=== PATIENT | female | born 1975 | race Caucasian/White ===

== ENCOUNTER 2017-01-01 12:05 | Observation (INO) | payer BC ==
[~2017-01-01] VITALS: Ht 170.2 cm; Wt 124.7 kg
--- NOTE | ~2017-01-01 | CATH ---
Cardiac Diagnostic Report Demographics Patient Name MELISSA TANNER Gender Female K Date of 1975 Age 41 year(s) Patient Number [id number] Date of Study 01/02/2017 Visit Number [id number] Room Number 423 Corporate ID Ht 170.18 cm Wt 124.28 kg Accession Number [id number] BSA 2.31 m kg/m Referring Riley Hadley Primary Physician Physician MD Ten Main MD Performing Germaine Raphael MD Secondary Physician Physician Diagnostic Germaine Raphael MD Assisting Physician Physician Interventional Physician Cyber Transport Systems Specialist Physician Findings and Conclusions Diagnostic Findings and Conclusion 1. Non obstructive single vessel CAD. Diagnostic Recommendations 1. Medical management. Procedure Description The patient was brought to the diagnostic cardiac catheterization laboratory in the fasting, non-sedated state. Informed consent was obtained in the written and verbal form after the risks and benefits were explained. The patient had no further questions and agreed to proceed. The planned puncture-incision site(s) were clipped and prepped with ChloraPrep and draped in the usual sterile manner. Conscious sedation, supplemental oxygen, and pain control medications were delivered by a registered nurse under physician guidance. Surface ECG rhythm, blood pressure measurement, and pulse oximetry were monitored throughout the procedure. Arterial access. The right radial access site was infiltrated with lidocaine. The vessel was entered with the Seldinger technique. A 6F sheath was advanced into the vessel and used for catheter placement. Selective left coronary angiography. A catheter was advanced into the left coronary vessel ostium under Fluoroscopic guidance. Contrast was injected by hand. Images were obtained in multiple projections. Selective right coronary angiography. A catheter was advanced into the right coronary vessel ostium under fluoroscopic guidance. Contrast was injected by hand. Images were obtained in multiple projections. Left heart catheterization. A catheter was advanced across the aortic valve to the left ventricle under fluoroscopic guidance. Resting hemodynamics were obtained. Hemostasis: The sheath was removed and a TR Band was placed. Hemostasis was achieved. The patient was transferred to a regular nursing floor via cart accompanied by a nurse. The patient left the laboratory in stable condition. Procedure Procedure Type Diagnostic procedure:Angiography:, Coronary Angios w/[facility] Indications: Chest pain with positive enzymes and numbness left arm. The procedure was explained in detail to the patient. Risks, complications and alternative treatments were reviewed. Written consent was obtained. Medications Reviewed with Patient prior to Procedure. Complications: No Complication. Angiographic Findings Dominance: Right Cardiac Arteries and Lesion Findings LMCA: Normal (0% Stenosis). LAD: Normal (0% Stenosis). LCx: Normal (0% Stenosis). RCA: Abnormal. Lesion on Prox RCA: 40% stenosis . Coronary Tree Procedure Data Procedure Date Date: 01/02/2017Start: 11:21 AM Entry Locations - Percutaneous access was performed through the Right Radial artery (Primary location). A 6 Fr sheath was inserted. Hemostasis was successfully obtained using a TR band. Procedure Medications Order and Administration + + +-------+-------+ !Time !Medication !Dosage !Route ! + + +-------+-------+ !01/02/2017 !Versed !2 mg !I.V. ! !11:19 AM ! ! ! ! + + +-------+-------+ 01/02/2017 !Fentanyl !25 mcg !I.V. ! !11:20 AM ! ! ! ! + + +-------+-------+ 01/02/2017 !Sodium Chloride !10 ml !I.V. ! !11:20 AM ! ! ! ! + + +-------+-------+ !01/02/2017 !Versed !2 mg !I.V. ! !11:11 AM ! ! ! ! + + +-------+-------+ !01/02/2017 !Fentanyl !50 mcg !I.V. ! !11:11 AM ! ! ! ! + + +-------+-------+ !01/02/2017 !SF Radial Cocktail: 200mcg Nitro, 2.5 mg ! !I.A. ! !11:26 AM !Verapamil, 5000u Heparin ! ! ! + + +-------+-------+ Devices Used - ACATH 6FR FL3.5 CATHETER 100CMwas used for:Left coronary angiography. - ACATH 6F FR4 CATHETER 100CMwas used for:Right coronary angiography. Contrast Material - Isovue 50997 ml Fluoroscopy Time: Diagnostic: 3:18 minutes. Total: 3:18 minutes. Fluoroscopy Dose: Diagnostic: 763 mGy. Total: 763 mGy. Estimated Blood Loss: 9 ml. Medical History Allergies - Other:(macrolide, tetracycline, doxycycline, erythromycin, ethyl alcohol, darvocet). Risk Factors The patient risk factors include:last creatinine: 0.8 mg/dl, creatinine clearance: 185.24 ml/min and Current/Recent(w/in 1 year) tobacco use. Admission Data Admission Date: 01/01/2017 Admission Time: 01:25 PM Insurance Payors: [employer] health insurance. Hemodynamics Condition: Rest O2 Consumption: Estimated: 233.65Heart Rate: 67 bpm Pressures (mmHg) +-----+ + !Site !Pressure ! +-----+ + !AO !96/65 (80) ! +-----+ + !LV !125/2 ,4 ! +-----+ + !AO !103/71 (86) ! +-----+ + !LV !102/ ,22 ! +-----+ + Valve Gradients and Areas + +---------+---------+---------+ +---------+ + !Valve !Peak !Mean !Area !Index !Flow !Source ! + +---------+---------+---------+ +---------+ + !Aortic !0 !0 ! ! ! ! ! + +---------+---------+---------+ +---------+ + !Aortic !0 !0 ! ! ! ! ! + +---------+---------+---------+ +---------+ + Shunts Oxygen Values O2 Capacity 206.72 O2 Consumption 233.65 Signatures
--- NOTE | ~2017-01-01 | ECH ---
Transthoracic Echocardiography Report (TTE) Demographics Patient Name CIRO TORRES Date of Study 01/01/2017 K Patient Number [id number] Visit Number [id number] Date of 1975 Room Number 423 Accession Number [id number] Gender Female Age 41 year(s) Referring Riley Hadley Architect In Training Rebecca Christiansen RDCS Physician MD Ten Main MD Physician Interpreting [facility] Abdirahman R Belt And Link Assembly Supervisor Physician Supervising Ordering Physician Ten Main MD, MD/MLP Nurse Stress Product Picker Conclusions Summary Technically difficult exam due to body habitus The estimated left ventricular ejection fraction is 55-60%. Mild concentric left ventricular hypertrophy. No significant valvular abnormalities. Procedure Type of Study TTE procedure:Echo Complete SF. Procedure Date Date: 01/01/2017 Start: 03:36 PM Technical Quality: Fair due to body habitus. Indications:Chest pain. Appropriate Use Criteria: 9 Height: 67 inches Weight: 274 pounds BSA: 2.31 m Rhythm: NSR HR: 72 bpm BP: 122/71 mmHg M-Mode/2D Measurements LV Diastolic Dimension: 3.88 cm LV Systolic Dimension: 2.59 cm LV Septum Diastolic: 1.21 cm LV PW Diastolic: 1.29 cm AO Root Dimension: 2.64 cm Cardiac Output: 2.94 l/min LA Dimension: 3.49 cm Cardiac Index: 1.27 l/min*m RV Diastolic Dimension: 2.8 cm LA volume index: 15 ml/m LVOT: 1.93 cm LVOT VTI: 13.97 cm RV Base: 3.2 cm LV Stroke volume: 40.85 ml RV Mid: 2.3 cm LV Stroke volume index: 17.68 ml/m RV Length: 6.9 cm Doppler Measurements AV Peak Velocity: 0.98 m/s MV Peak E-Wave: 0.39 m/s AV Peak Gradient: 3.84 mmHg MV Peak A-Wave: 0.53 m/s AV Mean Gradient: 2.12 mmHg MV E/A Ratio: 0.73 LVOT Peak Velocity: 0.82 m/s MV P1/2t: 90.1 msec AV Area (Continuity):2.64 cm MV Deceleration Time: 261.1 msec MV Area (PHT): 2.44 cm PV Peak Velocity: 0.78 m/s PV Peak Gradient: 2.45 mmHg RA Area: 7.4 cm Findings Left Ventricle The left ventricle is normal in size . Mild concentric left ventricular hypertrophy. Diastolic assessment reveals Grade I diastolic dysfunction. Right Ventricle Normal right ventricle structure and function. Left Atrium Normal left atrial size. Right Atrium Normal right atrial size. Mitral Valve Normal mitral valve structure and function. Trivial mitral regurgitation by color Doppler. Aortic Valve Normal aortic valve structure and function. Tricuspid Valve Normal tricuspid valve structure and function. Pulmonic Valve Normal pulmonic valve structure and function. Pericardial Effusion No evidence of pericardial effusion. Miscellaneous Visualized portions of the aortic root and ascending aorta appear normal in size. Pleural Effusion No evidence of pleural effusion. Contractility Score LV regional wall motion:(0-Non visualized 1-Normal 2-Hypokinesis 3-Akinesis 4-Dyskinesis 5-Aneurysm) Signature
[~2017-01-01 12:05] MED LIST: FLOMAX DPS0.4 MG PO; HABITROL DPS21 MG TD; HYDROCODON-ACE1 EAC4 PO; LEVAQUIN DPS500 MG PO; MIRALAX17 GM PO; ZOFRAN4 MG PO
[2017-01-03] MEDS ORDERED: PERCOCET 5 DPS1 TAB PO (16:22)
[2017-01-03] MEDS ORDERED: METOPROLOL TART25 MG PO (16:22)
[2017-01-03] MEDS ORDERED: CRESTOR10 MG PO (16:22)
[2017-01-03] MEDS ORDERED: ASA CHILDREN'S81 MG PO (16:22)
[2017-01-03] MEDS ORDERED: PLAVIX75 MG PO (16:23)
--- NOTE | 2017-01-04 07:28 | HP ---
ADMIT: 01/01/2017 RM/LOC: 423 [facility] MR#: [id number] [id number] [facility] [address] [place] [id number] CIRO TORRES [address] [place] [address] History and Physical SEX: F AGE: 41 : 1975 DATE OF SERVICE: CHIEF COMPLAINT: Chest pain. HISTORY OF PRESENT ILLNESS: Ciro is a 41-year-old female, admitted to emergency room with city call. She has no physician here in [place]. Ciro states she was awakened this morning with tingling in her left arm. After she got up, she developed a pressure in her chest. She is able to take her child to school, but she felt nauseated, sweaty, and a little bit of shortness of breath. She came home and laid on the linoleum on the bathroom floor to try to cool down. Chest pain felt like a pressure, somebody sitting on her chest. She came in the emergency room was given sublingual nitroglycerin. She said at first it made the pressure worse and then the pressure got better and then they put on nitroglycerin ointment and pressure went away completely. The left arm tingling has continued until present. She is admitted from the emergency room to trend her enzymes and EKG. It is reported her EKG was normal. PAST MEDICAL HISTORY: Obtained from old records. She was hospitalized here in 2015 with a kidney stone, urinary tract infection. PAST SURGICAL HISTORY: Previous surgeries include vaginal delivery, otherwise no other surgeries. ALLERGIES: ALLERGIC TO ERYTHROMYCIN, TETRACYCLINE, AND DARVOCET. ALL SIDE EFFECTS GI UPSET. MEDICATIONS: On no medication at this time. SOCIAL HISTORY: She lives in [place]. . [employer] at [employer]. Smokes pack of cigarette per day. Rarely uses alcohol. FAMILY HISTORY: Positive for father with hypertension, coronary artery disease, and cancer unknown type. Maternal grandmother had a stroke. REVIEW OF SYSTEMS: She states she has had some left arm tingling, elevated chest pressure about a week or 2 ago at rest, but did not make much of it went way after 5 to 10 minutes. Otherwise, review of systems is negative other than the kidney stones. Denies any current problems. PHYSICAL EXAMINATION: GENERAL: A 41-year-old female. She is alert, cooperative, oriented x3. VITAL SIGNS: Stable. BP is 140/80, pulse 88 and regular, respiratory rate 22, O2 saturation 96% on room air. She is afebrile at 98.6. HEENT: Negative. Eyes; PERRLA intact. TMs not seen. Throat is moist, not inflamed. NECK: Supple. LUNGS: Clear. HEART: Regular rate. No murmur. ADMIT: 01/01/2017 RM/LOC: 423 [facility] MR#: [id number] [address] [address] [place] [address] History and Physical SEX: F AGE: 41 : 1975 BREASTS: Not examined. ABDOMEN: Soft. No megaly or tenderness. GENITOURINARY/RECTAL: Deferred. EXTREMITIES: No clubbing, cyanosis, or edema. Calves nontender. LABORATORY DATA: Reviewed. Initial troponin I was normal. Repeat troponin was up to 0.28. EKG showed initially some ST-elevation in inferior leads in II, III, and AVF. Repeat EKG looks improved. CBC and BMP are normal. Chest x-ray is negative. DIAGNOSTIC IMPRESSION: Atypical chest pain with elevated troponin and some EKG changes, but concerned about acute coronary syndrome. PLAN: Serial EKG and enzymes. Cardiology consult. Echocardiogram. Hua Caal MD/ chris DINERO: 01/01/2017 17:18:42 JOB #: [id number] CC: Hua Caal, Attending Physician Hua Caal, Family Physician
--- NOTE | 2017-01-07 21:33 | ER ---
ADMIT: 01/01/2017 RM/LOC: 423 [facility] MR#: [id number] [address] [address] CIRO TORRES [address] [place] [address] Emergency Room Report SEX: F AGE: 41 : 1975 DATE: 01/01/2017 ADDENDUM: CHIEF COMPLAINT: Chest pain. HISTORY OF PRESENT ILLNESS: The patient is a 41-year-old female, who has no chronic medical conditions, but is a lifelong adult smoker and is overweight, who comes in complaining of pain in the center of her chest that radiates into her left arm. This began about 2.5 hours prior to arrival and was worse with exertion. She did have some associated nausea, felt like she might have had a slight sweat with this and was slightly short of breath also. She did think it was worse with exertion and got better with rest. REVIEW OF SYSTEMS: Systems reviewed and otherwise negative. PAST MEDICAL HISTORY: Significant only for renal stones. PAST SURGICAL HISTORY: She has had lithotripsy and stent. MEDICATIONS: None. ALLERGIES: SEE NURSE'S NOTE. SOCIAL HISTORY: Smokes a pack a day. Denies any drug use. Does use alcohol occasionally. PHYSICAL EXAMINATION: See T-sheet for complete physical exam. EMERGENCY DEPARTMENT COURSE: The patient did have a cardiac routine done when she presented. She has pain about 2/10. She received nitroglycerin, and after 2 nitroglycerin, she had complete resolution of her pain and had 1 inch ADMIT: 01/01/2017 RM/LOC: 423 [facility] MR#: [id number] [address] [address] TORRESDEANNA PAYNEAllison Swain [address] [place] [id number] Emergency Room Report SEX: F AGE: 41 : 1975 of nitroglycerin paste placed. She did receive aspirin also. LABORATORY DATA: CBC was unremarkable. Chemistry showed no acute findings, and first set of cardiac enzymes was negative. Chest x-ray showed nothing acute, and EKG showed sinus rhythm, no signs of ST-elevation or acute OR with a rate of 76. MEDICAL DECISION MAKING: I spoke with Dr. Caal as the patient is a city- call patient, and plan at this time is to admit the patient for further cardiac workup, and she has not had any workup done in the past, and her story is suspicious for cardiac chest pain. The patient is admitted in stable and improved condition for chest pain rule out. Madhu Perez MD/ chris JOB #: [id number] CC: Hua Caal MD, Attending Physician Hua Caal MD, Family Physician
--- NOTE | 2017-01-22 14:23 | CO ---
ADMIT: 01/01/2017 RM/LOC: 423 [facility] MR#: [id number] [address] [address] VENKATA TORRES [address] [place] [address] Consultation SEX: F AGE: 41 : 1975 DATE OF CONSULTATION: 01/01/2017 ATTENDING PHYSICIAN: Hua Caal CONSULTING PHYSICIAN: Abdirahman Lin MD REASON FOR CONSULTATION: Chest pain and left arm numbness. Malini Lawrence, a PA student, dictating for Dr. Abdirahman Lin. HISTORY OF PRESENT ILLNESS: Venkata Torres is a 41-year-old female, who has been evaluated by Cardiology for chest pain and left arm tingling and numbness. 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 After lying on the bathroom for sometime, she made her way to her bed. After sleeping for a couple of hours, she was awaken from her sleep due to intense chest pain, substernal pressure, and shortness of breath. She rated the pain a 7/10. She also admitted to numbness and tingling. The numbness and tingling has been going on for several weeks. She denies ever having anything like this in the past. She denied eating before this episode. The patient was taken to ER, and EKG demonstrated non-specific signs and cardiac enzymes were negative. Nitroglycerin was given and the patient stated this resolved her chest discomfort. Her medical history consists of kidney stones and possible gallstones. PAST MEDICAL HISTORY: Kidney stones, possibly from gallstones, and UTI. PAST SURGICAL HISTORY: Previous vaginal delivery, and 2 molar extractions. ALLERGIES: THE PATIENT HAS INTOLERANCES TO ERYTHROMYCIN, TETRACYCLINE, ETHYL ALCOHOL. THESE WERE ALL GASTROINTESTINAL UPSET. MEDICATIONS: The patient has no home medications. Current medications consist of: 1. Nitro-Bid 2%. 2. Nitrostat 0.4 mg q.5 minutes SL. 3. Aspirin. 4. Tylenol 650 mg q.4 p.r.n. 5. NS 3 to 10 mL q.day IV. 6. Colace 100 mg b.i.d. p.r.n. 7. Maalox 30 ml q.6 p.r.n. p.o. 8. Pepcid 20 mg b.i.d. p.o. SOCIAL HISTORY: The patient is a resident in [place]. She is . She works in retail. She admits to smoking 1-1/2 packs per day. She has a 23- pack-year smoking history. She admits to consuming 3 alcoholic beverages every 1 to 2 weeks. She consumes approximately 20 ounces of caffeine per day. She states that she engages in exercise 2 to 3 times per week. ADMIT: 01/01/2017 RM/LOC: 423 [facility] MR#: [id number] [address] [place] [phone] [place] [address] Consultation SEX: F AGE: 41 : 1975 FAMILY HISTORY: Her father had hypertension, coronary artery disease, and cancer of unknown type. Her maternal grandmother had a stroke at age 42. She also states that they have a family history of hypertension, hypercholesterolemia, and type 2 diabetes. REVIEW OF SYSTEMS: GENERAL: The patient tires easily and then she denies recent fevers, chills, or sweats or recent weight loss or gain. EYES: Denies double vision, blurred vision, cataracts, or glaucoma. ENT: Denies hearing loss or problems with nose, mouth or throat. PULMONARY: The patient admits to snoring mildly, waking up 2 to 3 times per night due to restlessness and tiring first thing in the morning. She denies asthma, wheezing, emphysema, bronchitis, chronic cough, and bloody sputum. GASTROINTESTINAL: Denies heartburn or difficulty swallowing. No change in bowel habits. Denies dark or bloody stools. No history of ulcers, hiatal hernia, or gallbladder or liver disease. GENITOURINARY: The patient states that she had a right-sided kidney stone. She denies blood in urine or problems with urination, urinary tract infection, or kidney failure. MUSCULOSKELETAL: Denies history of arthritis or gout. Denies muscle or joint pains. ENDOCRINE: Denies history of thyroid dysfunction or diabetes. HEMATOLOGIC: Denies history of anemia, easy bruising, or cancer. NEUROLOGIC: The patient admits to numbness and tingling, but denies chronic headaches, stroke, or seizures order. PSYCHIATRIC: Denies history of mental illness or feelings of depression. PHYSICAL EXAMINATION: Per Dr. Adelita Lin. VITAL SIGNS: Temperature is 97.9, pulse is 78, respirations are 14, blood pressure is 122/71, O2 is 98%, weight is 274 pounds. GENERAL: This patient denies chest pain, shortness of breath, or palpitations. EYES: Sclerae clear. No xanthelasmas. ENT: Oral mucosa is pink and moist. No jugular venous distention or carotid bruits. CHEST: Respirations are even and unlabored. Lungs are clear to auscultation. HEART: Regular rate and rhythm. Normal S1, S2. No murmurs, rubs or gallops. ABDOMEN: Obese. Soft and nontender. MUSCULOSKELETAL: Gait is normal. EXTREMITIES: Peripheral pulses palpable. No clubbing, cyanosis or edema. PSYCHIATRIC: Alert and oriented. Mood and affect are appropriate. DIAGNOSTIC DATA: Sodium is 137, potassium is 4.2, chloride is 104, bicarb is 25, BUN is 12, creatinine is 1.0, glucose is 109. White blood cell count is 9.3, hemoglobin is 16.2, hematocrit 47.1, platelets are 304, magnesium is 2.2, calcium is 9.1, CK is 55, CK-MB is less than 0.5, troponin is less than 0.015. EKG revealed a sinus rhythm with nonspecific EKG changes. ADMIT: 01/01/2017 RM/LOC: 423 [facility] MR#: [id number] [address] [address] VENKATA TORRES [address] [place] [address] Consultation SEX: F AGE: 41 : 1975 ASSESSMENT: Per Dr. Adelita Lin. 1. Atypical chest pain. 2. Tobacco abuse. PLAN: Atypical symptoms and overall low risk, but has equivocal changes on EKG. Today, we will do an echocardiogram. We will continue to rule out with serial enzymes. If no significant clinical changes, we will plan on exercise treadmill in the morning. We also discussed smoking cessation. Thank you for the Cardiology consult. I have read and agreed with documentation that has been completed regarding this visit. By signing this record, I attest that the documentation was completed in my physical presence and is an accurate record of the encounter. AVA Glez Student / Abdirahman Lin MD / chris JOB #: [id number] CC: Hua Caal, Attending Physician Hua Caal, Family Physician
[2017-05-06] MEDS ORDERED: CRESTOR10 MG PO (13:08)
[2017-05-06] MEDS ORDERED: ASPIRIN EC81 MG PO (13:08)
[2017-05-06] MEDS ORDERED: IMDUR DPS30 MG PO (13:09)
[2017-05-06] MEDS ORDERED: METOPROLOL TART25 MG PO (13:09)
[2017-05-06] MEDS ORDERED: NORVASC5 MG PO (13:09)
[2017-05-06] MEDS ORDERED: PLAVIX75 MG PO (13:09)
== END 2017-01-02 18:10 | disposition home or self-care (01) ==
LOC: ER 12:05 → 4PCU 13:25
PROVIDERS: ADMIT Family Medicine
DX: I25.10 Atherosclerotic heart disease of native coronary artery without angina pectoris (principal); F17.210 Nicotine dependence, cigarettes, uncomplicated; R79.89 Other specified abnormal findings of blood chemistry; Z88.1 Allergy status to other antibiotic agents; Z88.8 Allergy status to other drugs, medicaments and biological substances; Z87.442 Personal history of urinary calculi; Z79.82 Long term (current) use of aspirin; Z79.899 Other long term (current) drug therapy; Z79.891 Long term (current) use of opiate analgesic